=== PATIENT | female | born 2000 | race African-American/Black ===

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

== ENCOUNTER 2019-07-10 16:16 | Emergency (ER) | payer SELFPAY ==
[2019-07-10] MEDS ORDERED: LIDOCAINE 1% INJ-PF (10 MG/ML) 30 ML SDV INJ ONE (17:53)
--- NOTE | 2019-07-10 17:53 | ER Document Report ---
HPI - HPI Time Seen by Provider: 07/10/19 17:41 Pain Level: Denies Context: Patient is a 19-year-old female who presents to the emergency department with a chief complaint of right finger pain. Patient states that she pulled a hangnail couple weeks ago and she redness to her right fourth finger. She denies any fever, body aches or chills. She states that she sometimes goes to get her nails done. - CONSTITUTIONAL Constitutional: DENIES: Fever, Chills - REPRODUCTIVE Reproductive: DENIES: : - MUSCULOSKELETAL Musculoskeletal: REPORTS: Extremity pain - right 4th digit - DERM Skin Color: Normal Skin Problems: Pustule - Abscess Past Medical History - Social History Smoking Status: Never Smoker Frequency of alcohol use: None Drug Abuse: None Family History: Reviewed & Not Pertinent Patient has suicidal ideation: No Patient has homicidal ideation: No - Past Medical History Cardiac Medical History: Denies: Hx Coronary Artery Disease, Hx Heart Attack, Hx Hypertension Pulmonary Medical History: Reports: Hx Asthma Denies: Hx Bronchitis, Hx COPD, Hx Pneumonia Neurological Medical History: Reports: Hx Seizures. Denies: Hx Cerebrovascular Accident Renal/ Medical History: Denies: Hx Peritoneal Dialysis Musculoskeletal Medical History: Denies Hx Arthritis Skin Medical History: Reports Hx MRSA Psychiatric Medical History: Reports: Hx Attention Deficit Hyperactivity Disorder, Hx Bipolar Disorder, Hx Depression - anxiety Past Surgical History: Reports: Hx Tonsillectomy - Immunizations Immunizations up to date: Yes Hx Diphtheria, Pertussis, Tetanus Vaccination: Yes Hx Pneumococcal Vaccination: 05/16/00 Vertical Provider Document - CONSTITUTIONAL Agree With Documented VS: Yes Exam Limitations: No Limitations General Appearance: No Apparent Distress - INFECTION CONTROL TRAVEL OUTSIDE OF THE [place] IN LAST 30 DAYS: No - HEENT HEENT: Atraumatic, Normocephalic, PERRLA - RESPIRATORY Respiratory: Breath Sounds Normal, No Respiratory Distress - CARDIOVASCULAR Cardiovascular: Regular Rate, Regular Rhythm Pulses: Normal: Radial - MUSCULOSKELETAL/EXTREMETIES Musculoskeletal/Extremeties: FROM - NEURO Level of Consciousness: Awake, Alert, Appropriate - DERM Integumentary: Warm, Dry, Abscess - Right fourth digit paronychia Course - Re-evaluation Re-evalutation: 07/10/19 18:25 Paronychia was drained here in the emergency department. Mild cellulitis noted. Patient will be started on Bactrim and Keflex. Follow-up precautions were given. Verbal discharge instructions were given to the patient. They verbalized understanding. They are stable for discharge. - Vital Signs Vital signs: Temp Pulse Resp BP Pulse Ox 98.6 F 66 18 137/92 H 99 07/10/19 16:55 07/10/19 16:55 07/10/19 16:55 07/10/19 16:55 07/10/19 16:55 Procedures - Incision and Drainage Right Finger 4th digit Type: Simple Anesthetic type: 1% Lidocaine mL's of anesthetic: 10 - digital block Blade size: 11 I&D procedure: Shurclens applied Incision Method: Incision made by scalpel Amount/type of drainage: 4mls; purulent drainage/blood Hands back picture: 1 - Paronychia Discharge - Discharge Clinical Impression: Paronychia Condition: Stable Disposition: HOME, SELF-CARE Additional Instructions: You were seen today in the emergency department for an abscess called a paronychia. It was drained here in the emergency department. Take your antibiotics as prescribed. Follow-up with your primary care provider. Return if your symptoms get worse. Prescriptions: Sulfamethoxazole/Trimethoprim [Bactrim Ds Tablet] 1 each PO BID 7 Days #14 tablet Cephalexin Monohydrate [Keflex 500 mg Capsule] 500 mg PO Q6H 7 Days capsule Referrals: WENDI THORNTON MD [ACTIVE STAFF] - Follow up in 3-5 days
[2019-07-10] MEDS ORDERED: IBUPROFEN 600 MG TABLET PO ONE (18:27)
[2019-07-10 18:47] VITALS: BP 143/91
== END 2019-07-10 18:48 | disposition home or self-care (01) ==
LOC: ER 16:16
PROC: 0H9QXZZ Drainage of Finger Nail, External Approach (ICD-10-PCS; principal; 2019-07-10)
DX: L03.011 Cellulitis of right finger (principal); M79.644 Pain in right finger(s); J45.909 Unspecified asthma, uncomplicated
CPT/HCPCS: 99283

== ENCOUNTER 2019-09-10 12:26 | Emergency (ER) | payer SELFPAY ==
--- NOTE | 2019-09-10 12:52 | ER Document Report ---
ED Medical Screen (RME) - General Chief Complaint: Abdominal Pain Stated Complaint: ABDONINAL PAIN Time Seen by Provider: 09/10/19 12:49 Primary Care Provider: TRACI ODELL MD [Primary Care Provider] - Follow up as needed Mode of Arrival: Ambulatory Information source: Patient Notes: 19-year-old female patient presented to the emergency department chief complaint of low abdominal pain. Patient reports pain ongoing for last few days. She is unsure if she is . She denies any nausea, vomiting, diarrhea, dysuria or urinary frequency. She does report a clear mucousy vaginal discharge. Exam: Abdomen mildly tender on palpation across the right lower quadrant and left lower quadrants. I have greeted and performed a rapid initial assessment of this patient. A comprehensive ED assessment and evaluation of the patient, analysis of test results and completion of the medical decision making process will be conducted by additional ED providers. I have specifically instructed the patient or family members with the patient to immediately return to any nursing staff should anything change in the patient's condition or with their chief complaint. TRAVEL OUTSIDE OF THE [place] IN LAST 30 DAYS: No - Related Data Allergies/Adverse Reactions: amoxicillin [Amoxicillin] Allergy (Verified 09/03/17 13:51) fish oil [Fish Oil] Allergy (Verified 09/03/17 13:51) iodine [Iodine] Allergy (Verified 09/03/17 13:51) Iodine and Iodide Containing Produc Allergy (Verified 09/27/17 09:55) Penicillins Allergy (Verified 09/27/17 09:55) Shellfish * [Shellfish] Allergy (Verified 09/03/17 13:51) Past Medical History - Past Medical History Cardiac Medical History: Denies: Hx Coronary Artery Disease, Hx Heart Attack, Hx Hypertension Pulmonary Medical History: Reports: Hx Asthma Denies: Hx Bronchitis, Hx COPD, Hx Pneumonia Neurological Medical History: Reports: Hx Seizures. Denies: Hx Cerebrovascular Accident Renal/ Medical History: Denies: Hx Peritoneal Dialysis Musculoskeltal Medical History: Denies Hx Arthritis Skin Medical History: Reports Hx MRSA Psychiatric Medical History: Reports: Hx Attention Deficit Hyperactivity Disorder, Hx Bipolar Disorder, Hx Depression - anxiety Past Surgical History: Reports: Hx Tonsillectomy - Immunizations Immunizations up to date: Yes Hx Diphtheria, Pertussis, Tetanus Vaccination: Yes Physical Exam - Vital signs Vitals: Temp Pulse Resp BP Pulse Ox 99.0 F 83 20 155/103 H 99 09/10/19 12:33 09/10/19 12:33 09/10/19 12:33 09/10/19 12:33 09/10/19 12:33 Course - Vital Signs Vital signs: Temp Pulse Resp BP Pulse Ox 99.0 F 83 20 155/103 H 99 09/10/19 12:43 09/10/19 12:33 09/10/19 12:33 09/10/19 12:33 09/10/19 12:33 Doctor's Discharge - Discharge Referrals: TRACI ODELL MD [Primary Care Provider] - Follow up as needed
[2019-09-10 13:11] LABS: ABSOLUTE EOSINOPHILS # (AUTO) 0.1 10^3/uL (0.0-0.6); ABSOLUTE LYMPHOCYTES (AUTO) 2.4 10^3/uL (0.5-4.7); ABSOLUTE NEUT (AUTO) 7.4 10^3/uL (1.7-8.2); BASOPHILS % (AUTO) 0.4 % (0-2); EOSINOPHILS % (AUTO) 0.8 % (0-6); HEMATOCRIT 42.6 % (36.0-47.0); HEMOGLOBIN 14.7 g/dL (12.0-15.5); MEAN CORPUSCULAR HEMOGLOBIN 31.1 pg (27.0-33.4); MEAN CORPUSCULAR HGB CONC 34.6 g/dL (32.0-36.0); MEAN CORPUSCULAR VOLUME 90 fl (80-97); MONOCYTES % (AUTO) 8.9 % (3-13); PLATELET COUNT 232 10^3/uL (150-450); RED BLOOD COUNT 4.73 10^6/uL (3.72-5.28); RED CELL DISTRIBUTION WIDTH 15.2 % (11.5-14.0); SEGMENTED NEUTROPHILS % (AUTO) 67.9 % (42-78); TOTAL CELLS COUNTED % (AUTO) 100 %; WHITE BLOOD COUNT 10.9 10^3/uL (4.0-10.5)
[2019-09-10 13:15] LABS: APPEARANCE,URINE SLIGHTLY-CLOUDY; BILIRUBIN,URINE NEGATIVE (NEGATIVE); COLOR,URINE YELLOW; GLUCOSE, URINE NEGATIVE (NEGATIVE); KETONES,URINE NEGATIVE (NEGATIVE); LEUKOCYTE ESTERASE,URINE NEGATIVE (NEGATIVE); NITRITE,URINE NEGATIVE (NEGATIVE); PROTEIN,URINE NEGATIVE (NEGATIVE); URINE SPECIFIC GRAVITY 1.021; UROBILINOGEN,URINE NEGATIVE mg/dL (<2.0)
[2019-09-10] MEDS ORDERED: NORMAL SALINE 1000 ML 1,000 ML IV ONE (13:16)
[2019-09-10] MEDS ORDERED: METOCLOPRAMIDE HCL INJ/PF 10 MG/2 ML SDV IV ONE (13:17)
--- NOTE | 2019-09-10 13:21 | ER Document Report ---
ED GI/ - General Chief Complaint: Abdominal Pain Stated Complaint: ABDONINAL PAIN Time Seen by Provider: 09/10/19 12:49 Primary Care Provider: TRACI ODELL MD [Primary Care Provider] - Follow up as needed Mode of Arrival: Ambulatory Information source: Patient Notes: 19-year-old female presented to ED for complaint of nausea vomiting abdominal pain from top to bottom left to right. She states she has been having abdominal pain and nausea for about 3 weeks has been vomiting for about 2 days. She states her last menstrual period was June 25 she does not know for sure if she is or not she has not been in the past. She is alert oriented respirations regular nonlabored speaking in full sentences. She states she does have clear mucousy vaginal discharge but no vaginal bleeding. She is alert oriented respirations regular nonlabored speaking in full sentences. She does have mild tenderness to the entire abdomen. TRAVEL OUTSIDE OF THE [place] IN LAST 30 DAYS: No - HPI Patient complains to provider of: Abdominal pain, Diarrhea, Vomiting Onset: Other - 3 weeks Timing/Duration: Intermittent Quality of pain: Cramping Severity at maximum: Moderate Severity in ED: Moderate Pain Level: 2 - 40 Location: LUQ, LLQ, RUQ, RLQ, Pelvis Vaginal bleeding (Compared to normal period): None LMP: June 25 Associated symptoms: Diarrhea, Nausea, Vomiting Exacerbated by: Denies Relieved by: Denies Similar symptoms previously: Yes Recently seen / treated by doctor: No - Related Data Allergies/Adverse Reactions: amoxicillin [Amoxicillin] Allergy (Verified 09/03/17 13:51) fish oil [Fish Oil] Allergy (Verified 09/03/17 13:51) iodine [Iodine] Allergy (Verified 09/03/17 13:51) Iodine and Iodide Containing Produc Allergy (Verified 09/27/17 09:55) Penicillins Allergy (Verified 09/27/17 09:55) Shellfish * [Shellfish] Allergy (Verified 09/03/17 13:51) Past Medical History - General Information source: Patient - Social History Smoking Status: Never Smoker Frequency of alcohol use: Social Drug Abuse: None Lives with: Family - Will follow her primary care Family History: Reviewed & Not Pertinent Patient has suicidal ideation: No Patient has homicidal ideation: No - Past Medical History Cardiac Medical History: Reports: None Pulmonary Medical History: Reports: Hx Asthma EENT Medical History: Reports: None Neurological Medical History: Reports: Hx Seizures Endocrine Medical History: Reports: None Renal/ Medical History: Reports: None Malignancy Medical History: Reports: None GI Medical History: Reports: None Skin Medical History: Reports Hx MRSA Psychiatric Medical History: Reports: Hx Attention Deficit Hyperactivity Disorder, Hx Bipolar Disorder, Hx Depression - anxiety Traumatic Medical History: Reports: None Infectious Medical History: Reports: None Past Surgical History: Reports: Hx Tonsillectomy - Immunizations Immunizations up to date: Yes Hx Diphtheria, Pertussis, Tetanus Vaccination: Yes Hx Pneumococcal Vaccination: 05/16/00 Review of Systems - Review of Systems Constitutional: No symptoms reported EENT: No symptoms reported Cardiovascular: No symptoms reported Respiratory: No symptoms reported Gastrointestinal: Abdominal pain, Nausea, Vomiting Genitourinary: No symptoms reported Female Genitourinary: Last menstrual period - June 25 Musculoskeletal: No symptoms reported Skin: No symptoms reported Hematologic/Lymphatic: No symptoms reported Neurological/Psychological: No symptoms reported -: Yes All other systems reviewed and negative Physical Exam - Vital signs Vitals: Temp Pulse Resp BP Pulse Ox 99.0 F 83 20 155/103 H 99 09/10/19 12:33 09/10/19 12:33 09/10/19 12:33 09/10/19 12:33 09/10/19 12:33 Interpretation: Normal - General General appearance: Appears well, Alert - HEENT Head: Normocephalic, Atraumatic Eyes: Normal Pupils: PERRL - Respiratory Respiratory status: No respiratory distress Chest status: Nontender Breath sounds: Normal Chest palpation: Normal - Cardiovascular Rhythm: Regular Heart sounds: Normal auscultation Murmur: No - Abdominal Inspection: Normal Distension: No distension Bowel sounds: Normal Tenderness: Tender Organomegaly: No organomegaly - Back Back: Normal, Nontender - Extremities General upper extremity: Normal inspection, Nontender, Normal color, Normal ROM, Normal temperature General lower extremity: Normal inspection, Nontender, Normal color, Normal ROM, Normal temperature, Normal weight bearing. No: Bharat's sign - Neurological Neuro grossly intact: Yes Cognition: Normal Orientation: AAOx4 Kelley Coma Scale Eye Opening: Spontaneous Kelley Coma Scale Verbal: Oriented Sherry Coma Scale Motor: Obeys Commands Sherry Coma Scale Total: 15 Speech: Normal Motor strength normal: LUE, RUE, LLE, RLE Sensory: Normal - Psychological Associated symptoms: Normal affect, Normal mood - Skin Skin Temperature: Warm Skin Moisture: Dry Skin Color: Normal Course - Vital Signs Vital signs: Temp Pulse Resp BP Pulse Ox 98.2 F 67 18 142/89 H 100 09/10/19 14:40 09/10/19 14:40 09/10/19 14:40 09/10/19 14:40 09/10/19 14:40 - Laboratory Result Diagrams: 09/10/19 12:55 09/10/19 12:55 Laboratory results interpreted by me: 09/10/19 12:55 WBC 10.9 H RDW 15.2 H Discharge - Discharge Clinical Impression: Generalized abdominal pain Condition: Stable Disposition: HOME, SELF-CARE Additional Instructions: ABDOMINAL PAIN: There are many causes of abdominal pain. Pain can mean a serious problem requiring surgery (such as appendicitis). It can also be an innocent problem that goes away on its own (such as a viral infection). Often, time must pass to determine the cause of pain. The physician does not feel that hospitalization is necessary, at present. Things may change within the next 24 hours. Call the doctor or come back for re- examination if any problems occur, such as: (1) Pain that becomes more severe, steady, or becomes concentrated in one specific area. Also, pain that is more severe with movement or coughing. (2) Vomiting that persists or becomes more frequent. (3) Blood in the vomitus, urine, or bowel movements. Blood in the stool may have a tarry or black appearance. (4) Shaking chills or fever greater than 100 degrees F. (5) The abdomen becomes more distended or swollen. (6) Bowel movements cease. (7) Failure to improve as expected. NORMAL EXAM AND WORKUP: At this time, your examination and workup show no significant abnormality. No significant abnormal physical findings are noted. All laboratory, EKG, and imaging (x-ray, CT scans, ultrasound) studies that were ordered show no significant abnormality. Although your examination and all studies that were ordered showed no significant abnormal finding, there are no examinations and no studies that are 100% accurate. There is always the possibility that some abnormality could exist and not be detected with physical examination or within the limits and capabilities of laboratory and other studies. You should return or follow up as you were instructed on your visit today for further evaluation if your symptoms do not resolve. Bindu (Metoclopramide) Reglan has been prescribed. This medicine affects the stomach and intestines. It can be used to treat nausea and vomiting, to prevent reflux of stomach acid up into the esophagus, or to increase the contractions of the stomach and intestines. It is often prescribed for esophagitis, and for paralysis of the stomach in diabetics. Reglan can cause either mild restlessness or drowsiness. You should contact the doctor at once if you become extremely restless, anxious, or cannot sleep, or if you develop uncontrollable motions of the lips, tongue, or jaw. Do not take alcohol with this medicine. Do not drive or operate machinery until you have been taking this medicine long enough to know how it affects you. Call the doctor if you develop abdominal pains, lightheadedness, black stool, or blood in the stool or vomitus. FOLLOW-UP CARE: If you have been referred to a physician for follow-up care, call the [facility] office for an appointment as you were instructed or within the next two days. If you experience worsening or a significant change in your symptoms, notify the physician immediately or return to the Emergency Department at any time for re-evaluation. Forms: Elevated Blood Pressure Referrals: TRACI ODELL MD [Primary Care Provider] - Follow up as needed
[2019-09-10 13:32] LABS: ALBUMIN 4.3 g/dL (3.5-5.0); ALKALINE PHOSPHATASE 76 U/L (38-126); ANION GAP 7 (5-19); ASPARTATE AMINO TRANSFERASE 22 U/L (14-36); BILIRUBIN,TOTAL 0.4 mg/dL (0.2-1.3); BLOOD UREA NITROGEN 12 mg/dL (7-20); CALCIUM 9.5 mg/dL (8.4-10.2); CARBON DIOXIDE 28 mmol/L (22-30); CHLORIDE 103 mmol/L (98-107); GLUCOSE 94 mg/dL (75-110); POTASSIUM 4.2 mmol/L (3.6-5.0); TOTAL PROTEIN 7.7 g/dL (6.3-8.2)
[2019-09-10 14:42] VITALS: BP 142/89
--- NOTE | 2019-09-10 14:43 | RADIOLOGY REPORT (SQ) ---
EXAM DESCRIPTION: ACUTE ABDOMEN SERIES IMAGES COMPLETED DATE/TIME: 09/10/2019 2:28 pm REASON FOR STUDY: generalized abdominal pain COMPARISON: None. NUMBER OF VIEWS: Three views. TECHNIQUE: Frontal chest, supine abdomen and upright/decubitus abdomen radiographic images acquired. LIMITATIONS: None. FINDINGS: CHEST: The cardiomediastinal silhouette and pulmonary vasculature are within normal limits . There is no consolidation, pleural effusion or pneumothorax. FREE AIR: None. BOWEL GAS PATTERN: No dilated loops of bowel or air-fluid levels. CALCIFICATIONS: None. HARDWARE: None in the abdomen. SOFT TISSUES: No abnormality. BONES: No acute fracture. OTHER: No other finding. IMPRESSION: 1. No acute cardiopulmonary process. 2. Nonobstructive bowel gas pattern. TECHNICAL DOCUMENTATION: JOB ID: [id number] 2010 [employer]- All Rights Reserved Reading location - IP/workstation name: [email or web address]
== END 2019-09-10 15:05 | disposition home or self-care (01) ==
LOC: ER 12:26
DX: R10.84 Generalized abdominal pain (principal); R11.2 Nausea with vomiting, unspecified; R10.11 Right upper quadrant pain; R10.12 Left upper quadrant pain; R19.7 Diarrhea, unspecified; J45.909 Unspecified asthma, uncomplicated
CPT/HCPCS: 99284; 96361; 96374; 36415; 83690; 84703; 85025; 80053; 81001; 74022; J2765; J7030